=== PATIENT | female | born 1940 | race Caucasian/White ===

== ENCOUNTER 2017-03-16 08:15 | Inpatient (IN) | payer OTHER ==
[~2017-03-16] VITALS: Ht 149.9 cm; Wt 63.5 kg
[~2017-03-16 08:15] MED LIST: ADVIL100 M1 PO; CATAFLAN PO; CLONAZEPAM0.5 MG PO; CORGARD20 MG PO; COZAAR100 MG PO; DITROPAN XL10 MG PO; OMEPRAZOLE20 M1 PO; TRAMADOL HCL50 MG PO; VITAMIN C100 MG PO; VITAMIN D1000 UNIT PO
[2017-03-16] MEDS ORDERED: SINGULAIR10 MG PO (10:28)
== END 2017-03-20 10:49 | disposition home or self-care (01) | DRG 331 ==
LOC: O/R 08:15 → SURH 03-17 05:44 → O/R 03-17 05:44 → SURH 03-17 12:50
PROVIDERS: Colon & Rectal Surgery
PROC: 0D1B4Z4 Bypass Ileum to Cutaneous, Percutaneous Endoscopic Approach (ICD-10-PCS; 2017-03-17)
PROC: 07TC4ZZ Resection of Pelvis Lymphatic, Percutaneous Endoscopic Approach (ICD-10-PCS; 2017-03-17)
PROC: 0DJD8ZZ Inspection of Lower Intestinal Tract, Via Natural or Artificial Opening Endoscopic (ICD-10-PCS; 2017-03-17)
PROC: 0DTP4ZZ Resection of Rectum, Percutaneous Endoscopic Approach (ICD-10-PCS; principal; 2017-03-17 14:30)
DX: C20 Malignant neoplasm of rectum (principal); I10 Essential (primary) hypertension; Z91.09 Other allergy status, other than to drugs and biological substances; I49.8 Other specified cardiac arrhythmias

== ENCOUNTER 2017-06-24 11:07 | Outpatient (CLI) | payer OTHER ==
[~2017-06-24 11:07] MED LIST changes: +SINGULAIR10 MG PO
== END 2017-06-24 11:15 | disposition home or self-care (01) ==
LOC: RX STUDY 11:07
DX: C20 Malignant neoplasm of rectum (principal)

== ENCOUNTER 2017-06-29 11:30 | Inpatient (IN) | payer OTHER ==
[~2017-06-29] VITALS: Ht 149.9 cm; Wt 61.2 kg
== END 2017-07-03 16:12 | disposition home or self-care (01) | DRG 331 ==
LOC: O/R 07-01 09:12 → SURG 07-01 09:12 → RECOVERY 07-01 10:45 → SURH 07-01 16:31 → SURG 07-01 17:37
PROVIDERS: Colon & Rectal Surgery
PROC: 0DQB4ZZ Repair Ileum, Percutaneous Endoscopic Approach (ICD-10-PCS; principal; 2017-07-01 10:45)
DX: C20 Malignant neoplasm of rectum (principal); Z43.2 Encounter for attention to ileostomy; I10 Essential (primary) hypertension

== ENCOUNTER → 2018-05-14 | Day surgery (SDC) | payer OTHER | END | disposition home or self-care (01) | LOC: ADM 05-11 10:30 → CIR.AMB 10:30 | DX: D12.5 Benign neoplasm of sigmoid colon (principal); K52.89 Other specified noninfective gastroenteritis and colitis; K57.30 Diverticulosis of large intestine without perforation or abscess without bleeding ==

== ENCOUNTER 2019-08-12 08:47 | Day surgery (SDC) | payer OTHER | END 2019-08-12 13:20 | disposition home or self-care (01) | LOC: AMB-ENDOS 08:47 → ADM 14:15 → AMB-ENDOS 14:15 | PROVIDERS: ATTEND Colon & Rectal Surgery | DX: K62.89 Other specified diseases of anus and rectum (principal); K57.30 Diverticulosis of large intestine without perforation or abscess without bleeding ==